=== PATIENT | male | born 1990 ===

== ENCOUNTER 2017-09-18 00:48 | Emergency (ER) | payer BC ==
[2017-09-18 00:49] VITALS: BMI 18.8
[2017-09-18 01:32] VITALS: BP 126/85; PULSE 81; RESP 17; TEMP 98.3; O2SAT 99
--- NOTE | 2017-09-18 01:46 | ED PDOC ---
Arrival/HPI - General Time Seen by Provider: 09/18/17 01:37 Historian: Patient - History of Present Illness Narrative History of Present Illness (Text): 09/18/17 01:46 A 27 year old male, with no significant past medical history, who presents to the emergency room complaining of a sore throat for the past few days. Patient states he was seen by his PMD yesterday, who prescribed him antibiotics and pain medication, but denies any significant improvement. Patient denies any fevers, chills, headache, dizziness, cough, abdominal pain, nausea, vomiting, or any other complaints. Time/Duration: Other (few days) Symptom Onset: Gradual Symptom Course: Unchanged Activities at Onset: Rest Context: Home Past Medical History - Provider Review Nursing Documentation Reviewed: Yes Family/Social History - Physician Review Nursing Documentation Reviewed: Yes Family/Social History: No Known Family HX Allergies/Home Meds Allergies/Adverse Reactions: Allergies No Known Allergies Allergy (Verified 07/27/17 13:28) Home Medications: Home Meds Medication Instructions Recorded Confirmed No Known Home Med 07/27/17 07/27/17 Review of Systems - Physician Review All systems were reviewed & negative as marked: Yes - Review of Systems Constitutional: Normal. absent: Fevers, Night Sweats Eyes: Normal ENT: Sore Throat, Other (+ear pain) Respiratory: Normal. absent: SOB, Cough Cardiovascular: Normal. absent: Chest Pain Gastrointestinal: Normal. absent: Abdominal Pain, Diarrhea, Nausea, Vomiting Genitourinary Male: Normal. absent: Dysuria, Frequency, Hematuria, Urinary Output Changes Musculoskeletal: Normal. absent: Back Pain Skin: Normal. absent: Rash Neurological: Normal. absent: Headache, Dizziness Endocrine: Normal Hemo/Lymphatic: Normal Psychiatric: Normal Physical Exam Vital Signs Reviewed: Yes Vital Signs Temp Pulse Resp BP Pulse Ox 09/18/17 01:31 98.3 F 81 17 126/85 99 Temperature: Afebrile Blood Pressure: Normal Pulse: Regular Respiratory Rate: Normal Appearance: Positive for: Well-Appearing, Non-Toxic, Comfortable Pain Distress: None Mental Status: Positive for: Alert and Oriented X 3 - Systems Exam Head: Present: Atraumatic, Normocephalic Pupils: Present: PERRL Extroacular Muscles: Present: EOMI Conjunctiva: Present: Normal Ears: Present: Normal, NORMAL TM, Normal Canal. No: Erythema, TM Bulging, Fluid , TM Perf Mouth: Present: Moist Mucous Membranes Pharnyx: Present: ERYTHEMA (Erythema to tonsils bilaterally), EXUDATE (Scanty exudates to tonsils bilaterally) Nose (External): Present: Atraumatic Nose (Internal): Present: Normal Inspection Neck: Present: Lymphadenopathy (Mild palpable cervical adenopathy), Other. No: Meningeal Signs, MIDLINE TENDERNESS, Paraspinal Tenderness Respiratory/Chest: Present: Clear to Auscultation, Good Air Exchange. No: Respiratory Distress, Accessory Muscle Use Cardiovascular: Present: Regular Rate and Rhythm, Normal S1, S2. No: Murmurs Abdomen: Present: Normal Bowel Sounds. No: Tenderness, Distention, Peritoneal Signs Back: Present: Normal Inspection Upper Extremity: Present: Normal Inspection. No: Cyanosis, Edema Lower Extremity: Present: Normal Inspection. No: Edema Neurological: Present: GCS=15, CN II-XII Intact, Speech Normal Skin: Present: Warm, Dry, Normal Color. No: Rashes Lymphatic: Present: Cervical Adenopathy (Mild palpable cervical adenopathy) Psychiatric: Present: Alert, Oriented x 3, Normal Insight, Normal Concentration Medical Decision Making ED Course and Treatment: 09/18/17 01:52 Impression: A 27 year old with sore throat for the past few days. Differential Diagnosis included but are not limited to: tonsillitis vs. pharyngitis Plan: -- Bicillin -- Decadron -- Reassess and disposition Progress Notes: 09/18/17 02:40 On re-evaluation, patient feels better and is in no acute distress. I have discussed the results and plan with the patient, who expresses understanding. Patient in agreement with plan to be discharged home. Patient is stable for discharge. Patient was instructed to follow up with physician or return if symptoms worsen or new concerning symptoms arise. - Medication Orders Current Medication Orders: Discontinued Medications Dexamethasone (Decadron Inj) 10 mg IM ONCE ONE Stop: 09/18/17 01:54 Last Admin: 09/18/17 02:17 Dose: 10 mg IM Administration Charges Document 09/18/17 02:17 RD (Rec: 09/18/17 02:17 RD [id number]) Injection Site MAR Injection Site Right Gluteus Matias Charges for Administration # of IM Administrations 1 Penicillin G Benzathine (Bicillin L-A Inj) 1,200,000 units IM STAT STA PRN Reason: Protocol Stop: 09/18/17 01:54 Last Admin: 09/18/17 02:16 Dose: 1,200,000 units IM Administration Charges Document 09/18/17 02:16 RD (Rec: 09/18/17 02:17 RD [id number]) Injection Site MAR Injection Site Left Gluteus Matias Charges for Administration # of IM Administrations 1 - Scribe Statement The provider has reviewed the documentation as recorded by the Richardsonibe Scribe Attestation: Kalyani Johns under supervision of Misti Yen MD Scribe Attestation: All medical record entries made by the Scribe were at my direction and personally dictated by me. I have reviewed the chart and agree that the record accurately reflects my personal performance of the history, physical exam, medical decision making, and the department course for this patient. I have also personally directed, reviewed, and agree with the discharge instructions and disposition. Disposition/Present on Arrival - Present on Arrival Any Indicators Present on Arrival: No - Disposition Have Diagnosis and Disposition been Completed?: Yes Diagnosis: Tonsillitis Disposition: HOME/ ROUTINE Disposition Time: 02:44 Patient Plan: Discharge Condition: GOOD Discharge Instructions (ExitCare): Sore Throat, Adult (DC) Additional Instructions: Drink cool liquids/continue your meds as prescribed/follow up with your doctor this week
[2017-09-18] MEDS ORDERED: Penicillin G Benzathine 1.2 Mill Unit/2 ml Syr IM STA (01:53)
== END 2017-09-18 02:51 | disposition home or self-care (01) ==
LOC: ED 00:48
DX: J03.90 Acute tonsillitis, unspecified (principal)
CPT/HCPCS: 96372; 99283; J0561; J1100